=== PATIENT | male | born 1995 | race African-American/Black ===

== ENCOUNTER 2023-06-28 21:23 | Inpatient (IN) | payer OTHER ==
[~2023-06-28] VITALS: Ht 185.4 cm; Wt 104.8 kg
[2023-06-28] MEDS ORDERED: MORPHINE SULFATE 4 MG/1 ML DISP.SYRIN IV ONE (22:30)
[2023-06-28] MEDS ORDERED: ONDANSETRON 4 MG/2 ML VIAL IV ONE (22:30)
[2023-06-28 22:39] LABS: BASOPHILS % (AUTO) 0.5 % (0.0-2.0); EOSINOPHILS % (AUTO) 0.2 % (0.0-7.0); HEMATOCRIT 38.6 % (36.7-47.1); HEMOGLOBIN 13.2 g/dL (12.5-16.3); LYMPHOCYTES # (AUTO) 1.5 K/uL (0.8-4.8); LYMPHOCYTES % (AUTO) 15.7 % (20.5-51.5); MEAN CORPUSCULAR HGB CONC 34 g/dL (32.5-36.3); MEAN CORPUSCULAR VOLUME 93.8 fL (73.0-96.2); MONOCYTES % (AUTO) 9.9 % (0.0-11.0); NEUTROPHILS # (AUTO) 7.1 K/uL (1.8-8.9); NEUTROPHILS % (AUTO) 73.7 % (38.5-71.5); PLATELET COUNT (AUTO) 254 K/uL (152-348); RED BLOOD CELL COUNT(AUTO) 4.12 MIL/uL (4.06-5.63); RED CELL DISTRIBUTION WIDTH 12.2 % (12.1-16.2); WHITE BLOOD COUNT (AUTO) 9.6 K/uL (3.6-10.2)
[2023-06-28] MEDS ORDERED: ONDANSETRON 4 MG/2 ML VIAL ONE (22:42)
[2023-06-28] MEDS ORDERED: MORPHINE SULFATE 4 MG/1 ML DISP.SYRIN ONE (22:43)
[2023-06-28 22:44] LABS: DIFFERENTIAL COMMENT 1
[2023-06-28 22:50] LABS: CALCIUM 9.3 mg/dL (8.5-10.1); POTASSIUM 3.2 mmol/L (3.5-5.1)
[2023-06-28 22:56] LABS: ALBUMIN 3.9 g/dL (3.4-5.0); BILIRUBIN,DIRECT 0.4 mg/dL (0.0-0.2); BILIRUBIN,TOTAL 1.6 mg/dL (0.2-1.0); TOTAL PROTEIN, SERUM 7.9 g/dL (6.4-8.2)
[2023-06-29] VITALS (8 sets, daily range): BP systolic 107–136; BP diastolic 39–68; TEMP 97.9–99; O2SAT 96–100
[2023-06-29] MEDS ORDERED: HYDROMORPHONE 1 MG/1 ML DISP.SYRIN IV ONE (00:15)
[2023-06-29] MEDS ORDERED: DEXAMETHASONE SOD PHOSPHATE 4 MG INJ IV ONE (00:15)
[2023-06-29] MEDS ORDERED: ACETAMINOPHEN 325 MG TABLET PO PRN (01:00)
[2023-06-29] MEDS ORDERED: ONDANSETRON 4 MG/2 ML VIAL IV PRN (01:00)
[2023-06-29] MEDS ORDERED: DEXAMETHASONE SOD PHOSPHATE 4 MG INJ ONE (02:03)
[2023-06-29] MEDS: DEXAMETHASONE SOD PHOSPHATE 4 MG INJ IV SCH ×2 (08:24→20:26)
[2023-06-29] MEDS: HYDROMORPHONE 1 MG/1 ML DISP.SYRIN IV PRN ×3 (12:09→20:27)
[2023-06-29] MEDS: ONDANSETRON 4 MG/2 ML VIAL IV PRN ×2 (12:10→15:55)
[2023-06-29 12:42] LABS: BASOPHILS # (AUTO) 0.3 K/UL (0.0-0.2); BASOPHILS % (AUTO) 3.4 % (0.0-2.0); EOSINOPHILS # (AUTO) 0.1 K/uL (0.0-0.7); EOSINOPHILS % (AUTO) 0.7 % (0.0-7.0); HEMATOCRIT 39.6 % (36.7-47.1); HEMOGLOBIN 13.4 g/dL (12.5-16.3); LYMPHOCYTES # (AUTO) 0.6 K/uL (0.8-4.8); MEAN CORPUSCULAR HEMOGLOBIN 31.7 uug (23.8-33.4); MEAN CORPUSCULAR HGB CONC 34 g/dL (32.5-36.3); MEAN CORPUSCULAR VOLUME 93.7 fL (73.0-96.2); MONOCYTES # (AUTO) 0.5 K/uL (0.1-1.30); MONOCYTES % (AUTO) 6.1 % (0.0-11.0); NEUTROPHILS # (AUTO) 6.6 K/uL (1.8-8.9); NEUTROPHILS % (AUTO) 81.8 % (38.5-71.5); PLATELET COUNT (AUTO) 295 K/uL (152-348); RED BLOOD CELL COUNT(AUTO) 4.22 MIL/uL (4.06-5.63); RED CELL DISTRIBUTION WIDTH 12.4 % (12.1-16.2); WHITE BLOOD COUNT (AUTO) 8.1 K/uL (3.6-10.2)
[2023-06-29 12:43] LABS: DIFFERENTIAL COMMENT 1
[2023-06-29 12:47] LABS: CALCIUM 9.5 mg/dL (8.5-10.1); CREATININE 1.2 mg/dL (0.6-1.3); POTASSIUM 4.4 mmol/L (3.5-5.1)
[2023-06-29 12:53] LABS: ALBUMIN 3.9 g/dL (3.4-5.0); BILIRUBIN,TOTAL 1.2 mg/dL (0.2-1.0); TOTAL PROTEIN, SERUM 8.1 g/dL (6.4-8.2)
[2023-06-29] MEDS: levETIRAcetam 500 MG TABLET PO SCH ×2 (18:30→20:26)
[2023-06-29] MEDS: NICOTINE 21 MG/24HR PATCH TD SCH (19:01)
[2023-06-29] MEDS: ZOLPIDEM 5 MG TABLET PO PRN (22:38)
[2023-06-30 06:42] LABS: BASOPHILS % (AUTO) 0.3 % (0.0-2.0); EOSINOPHILS % (AUTO) 0.1 % (0.0-7.0); HEMATOCRIT 36.3 % (36.7-47.1); HEMOGLOBIN 12.6 g/dL (12.5-16.3); LYMPHOCYTES # (AUTO) 1.5 K/uL (0.8-4.8); LYMPHOCYTES % (AUTO) 15.1 % (20.5-51.5); MEAN CORPUSCULAR HEMOGLOBIN 32.4 uug (23.8-33.4); MEAN CORPUSCULAR HGB CONC 35 g/dL (32.5-36.3); MEAN CORPUSCULAR VOLUME 93.4 fL (73.0-96.2); MONOCYTES # (AUTO) 0.8 K/uL (0.1-1.30); MONOCYTES % (AUTO) 8.2 % (0.0-11.0); NEUTROPHILS # (AUTO) 7.9 K/uL (1.8-8.9); NEUTROPHILS % (AUTO) 76.3 % (38.5-71.5); PLATELET COUNT (AUTO) 290 K/uL (152-348); RED BLOOD CELL COUNT(AUTO) 3.89 MIL/uL (4.06-5.63); RED CELL DISTRIBUTION WIDTH 12.3 % (12.1-16.2); WHITE BLOOD COUNT (AUTO) 10.3 K/uL (3.6-10.2)
[2023-06-30 07:00] LABS: DIFFERENTIAL COMMENT 1
[2023-06-30 07:09] LABS: ALBUMIN 3.6 g/dL (3.4-5.0); BILIRUBIN,TOTAL 0.9 mg/dL (0.2-1.0); CALCIUM 8.9 mg/dL (8.5-10.1); CREATININE 1.1 mg/dL (0.6-1.3); MAGNESIUM 2.2 mg/dL (1.8-2.4); PHOSPHOROUS 4.4 mg/dL (2.5-4.9); POTASSIUM 4.1 mmol/L (3.5-5.1); TOTAL PROTEIN, SERUM 7.5 g/dL (6.4-8.2); URIC ACID 4.3 mg/dL (3.5-7.2)
[2023-06-30 08:00] VITALS: BP 131/70; TEMP 97.8; TEMP 98.7; O2SAT 97; O2SAT 99
[2023-06-30] MEDS: NICOTINE 21 MG/24HR PATCH TD SCH (09:26)
[2023-06-30] MEDS: levETIRAcetam 500 MG TABLET PO SCH ×2 (09:27→21:15)
[2023-06-30] MEDS: DEXAMETHASONE SOD PHOSPHATE 4 MG INJ IV SCH ×2 (09:27→21:15)
[2023-06-30 10:14] LABS: THYROID STIMULATING HORMONE 0.786 mIU/mL (0.358-3.740)
[2023-06-30 11:30] VITALS: BP 113/60; TEMP 98.1; O2SAT 98
[2023-06-30] MEDS: HYDROMORPHONE 1 MG/1 ML DISP.SYRIN IV PRN ×3 (12:18→23:36)
[2023-06-30] MEDS ORDERED: LEVE750T4 PO (12:57)
[2023-06-30] MEDS ORDERED: ONDA-104 PO (12:57)
[2023-06-30] MEDS ORDERED: HYDR-3974 PO (12:57)
[2023-06-30 15:42] VITALS: BP 117/56; TEMP 98.3; O2SAT 100
[2023-06-30] MEDS ORDERED: NICOTINE 21 MG/24HR PATCH TD SCH (20:00)
[2023-06-30 20:01] VITALS: BP 116/57; TEMP 98.5; O2SAT 97
[2023-06-30] MEDS: ZOLPIDEM 5 MG TABLET PO PRN (21:15)
[2023-06-30 23:54] VITALS: BP 117/56; TEMP 98.1; O2SAT 97
[2023-07-01 06:22] VITALS: BP 113/54; TEMP 97.9; O2SAT 98
[2023-07-01] MEDS: DEXAMETHASONE SOD PHOSPHATE 4 MG INJ IV SCH (08:53)
[2023-07-01] MEDS: levETIRAcetam 500 MG TABLET PO SCH (08:53)
[2023-07-01] MEDS: NICOTINE 21 MG/24HR PATCH TD SCH (08:54)
[2023-07-01] MEDS: HYDROMORPHONE 1 MG/1 ML DISP.SYRIN IV PRN (09:23)
[2023-07-01 11:30] VITALS: BP 120/57; TEMP 97.7; O2SAT 98
[2023-07-01] MEDS ORDERED: HYDR-3980 PO (12:06)
[2023-07-01] MEDS ORDERED: LEVE750T4 PO (12:06)
== END 2023-07-01 15:20 | disposition home or self-care (01) | DRG 55 ==
LOC: ER 21:27 → CCU 06-29 00:50 → TELE3 06-29 18:16
PROVIDERS: ADMIT Internal Medicine; ATTEND Internal Medicine
DX: S06.6XAA Traumatic subarachnoid hemorrhage with loss of consciousness status unknown, initial encounter (principal); E22.2 Syndrome of inappropriate secretion of antidiuretic hormone; S06.1XAA Traumatic cerebral edema with loss of consciousness status unknown, initial encounter; R40.2142 Coma scale, eyes open, spontaneous, at arrival to emergency department; R40.2362 Coma scale, best motor response, obeys commands, at arrival to emergency department; R40.2252 Coma scale, best verbal response, oriented, at arrival to emergency department; V00.131A Fall from skateboard, initial encounter; Y93.51 Activity, roller skating (inline) and skateboarding; Y92.89 Other specified places as the place of occurrence of the external cause; E66.9 Obesity, unspecified; Z68.30 Body mass index [BMI] 30.0-30.9, adult; E87.6 Hypokalemia; E80.6 Other disorders of bilirubin metabolism; R00.1 Bradycardia, unspecified; R52 Pain, unspecified
CPT/HCPCS: 36415; 70450; 83735; 84100; 84443; 84550; 85025; 85610; 93005; 93307; A4606; A4663; G0378; J1100; J1170; J2270; J2405